=== PATIENT | female | born 1965 | race Caucasian/White ===

== ENCOUNTER 2016-07-05 08:19 | Emergency (ER) | payer OTHER ==
[~2016-07-05] VITALS: Ht 162.6 cm; Wt 74.0 kg
[~2016-07-05 08:19] MED LIST: CYCL-36 PO; PRED20 PO; ULTR50TA PO
[2016-07-05 08:22] VITALS: BP 170/93; PULSE 91; RESP 17; TEMP 97.9; O2SAT 100
[2016-07-05 08:38] VITALS: BP 144/82; PULSE 60; RESP 18; O2SAT 99
[2016-07-05] MEDS ORDERED: SODIUM CHLORIDE 0.9% FLUSH 10 ML FLUSH IVF PRN (08:45)
[2016-07-05] MEDS ORDERED: ASPIRIN 81 MG CHEW TAB CHEW SCH (09:00)
[2016-07-05 09:02] LABS: AUTOMATED NEUTROPHIL # 2.7 TH/MM3 (1.8-7.7); BASOPHIL % 0.8 % (0.0-2.0); EOSINOPHIL # 0.2 TH/MM3 (0-0.4); EOSINOPHIL % 3.9 % (0.0-4.0); HEMATOCRIT 35.8 % (35.0-46.0); HEMO FLAGS DIFF FINAL; LYMPH % 33.7 % (9.0-44.0); LYMPHOCYTE # 1.8 TH/MM3 (1.0-4.8); MEAN CELL VOLUME 83.2 FL (80.0-100.0); MEAN CORPUSCULAR HEMOGLOBIN 28.4 PG (27.0-34.0); MEAN CORPUSCULAR HGB CONC 34.1 % (32.0-36.0); MONO % 9.4 % (0.0-8.0); NEUT % 52.2 % (16.0-70.0); PLATELET COUNT 289 TH/MM3 (150-450); RED CELL DISTRIBUTION WIDTH 15.5 % (11.6-17.2); WHITE BLOOD COUNT 5.3 TH/MM3 (4.0-11.0)
[2016-07-05 09:05] VITALS: BP 144/82; RESP 16; O2SAT 98
[2016-07-05 09:23] LABS: ANION GAP 8 MEQ/L (5-15); AST (GOT) 17 U/L (15-37); BICARBONATE 25.6 MEQ/L (21.0-32.0); BLOOD UREA NITROGEN 12 MG/DL (7-18); CHLORIDE 103 MEQ/L (98-107); GLOMERULAR FILTRATION RATE 67 ML/MIN (>89); MAGNESIUM 2.1 MG/DL (1.5-2.5); POTASSIUM 3.7 MEQ/L (3.5-5.1); SODIUM (NA) 137 MEQ/L (136-145)
[2016-07-05 09:29] LABS: ALKALINE PHOSPHATASE 74 U/L (45-117); ALT (GPT) 24 U/L (10-53); TOTAL BILIRUBIN ADULT 0.3 MG/DL (0.2-1.0)
[2016-07-05 09:42] VITALS: BP_SYST 124; BP_SYST 140; BP_DIAS 71; BP_DIAS 75; PULSE 61; PULSE 64
[2016-07-05 09:48] LABS: APTT (PATIENT) 26.9 SEC (24.3-30.1); PROTHROMBIN TIME - PATIENT 10.7 SEC (9.8-11.6)
--- NOTE | 2016-07-05 10:43 | PD ---
HPI Chief Complaint: Chest Pain Time Seen by Provider: 08:40 Travel History International Travel<30 days: Yes Contact w/Intl Traveler<30days: Yes Name of Country Traveled to: [facility] Traveled to known affect area: No History of Present Illness HPI Is a 50 year-old woman who presents to the emergency department complaining of intermittent tightness and pain in her chest ongoing since yesterday. She's never really had similar symptoms before. She has hyperlipidemia, and some chronic neck and back pain, but has never had heart or lung problems. States symptoms started yesterday. She has some association with suppressed with him. No clear aggravating or alleviating factors. Symptoms not clearly associated with exertion. There are improved with relaxation and rest. They last about 1- 2 minutes when they come on. They continued again today so she came to the emergency department. History Past Medical History Narrative Medical Chronic neck and back pain Hyperlipidemia Prosthetic left eye LMP: EARLY JUNE 2016 Family History Narrative Family History Family history of heart disease. Social History Alcohol Use: Yes (WEEKENDS) Tobacco Use: No Allergies-Medications (Allergen,Severity, Reaction): Coded Allergies: No Known Allergies (Unverified , 07/05/16) Reported Meds & Prescriptions Reported Meds & Active Scripts Active Ultram (Tramadol HCl) 50 Mg Tab 50 Mg PO Q4H PRN Deltasone (Prednisone) 20 Mg Tab 20 Mg PO BID Flexeril (Cyclobenzaprine HCl) 10 Mg Tab 10 Mg PO HS PRN Review of Systems Except as stated in HPI: all other systems reviewed are Neg Physical Exam Narrative GENERAL: Well-appearing 50 year-old woman, no acute distress. SKIN: Focused skin assessment warm/dry. HEAD: Atraumatic. Normocephalic. EYES: Pupils equal and round. No scleral icterus. No injection or drainage. ENT: No nasal bleeding or discharge. Mucous membranes pink and moist. NECK: Trachea midline. No JVD. CARDIOVASCULAR: Regular rate and rhythm. No murmur appreciated. RESPIRATORY: No accessory muscle use. Clear to auscultation. Breath sounds equal bilaterally. GASTROINTESTINAL: Abdomen soft, non-tender, nondistended. Hepatic and splenic margins not palpable. MUSCULOSKELETAL: No obvious deformities. No clubbing. No cyanosis. No edema. NEUROLOGICAL: Awake and alert. No obvious cranial nerve deficits. Motor grossly within normal limits. Normal speech. PSYCHIATRIC: Appropriate mood and affect; insight and judgment normal. Data Data Last Documented VS Vital Signs Date Time Temp Pulse Resp B/P Pulse Ox O2 Delivery O2 Flow Rate FiO2 07/05/16 09:42 64 140/75 07/05/16 09:05 Room Air 07/05/16 09:05 97 07/05/16 09:05 16 07/05/16 08:22 97.9 Orders Electrocardiogram (07/05/16 ) Electrocardiogram (07/05/16 08:42) Complete Blood Count With Diff (07/05/16 08:42) Comprehensive Metabolic Panel (07/05/16 08:42) Magnesium (Mg) (07/05/16 08:42) Prothrombin Time / Inr (Pt) (07/05/16 08:42) Act Partial Throm Time (Ptt) (07/05/16 08:42) Troponin I (07/05/16 08:42) Lipase (07/05/16 08:42) Ecg Monitoring (07/05/16 08:42) Bilateral Bp Monitoring (07/05/16 08:42) Iv Access Insert/Monitor (07/05/16 08:42) Oximetry (07/05/16 08:42) Oxygen Administration (07/05/16 08:42) Sodium Chloride 0.9% Flush (Ns Flush) (07/05/16 08:45) Chest, Pa & Lat (07/05/16 08:42) Aspirin Chew (Aspirin Chew) (07/05/16 09:00) Labs Laboratory Tests Test 07/05/16 07/05/16 08:45 09:22 White Blood Count 5.3 TH/MM3 Red Blood Count 4.30 MIL/MM3 Hemoglobin 12.2 GM/DL Hematocrit 35.8 % Mean Corpuscular Volume 83.2 FL Mean Corpuscular Hemoglobin 28.4 PG Mean Corpuscular Hemoglobin 34.1 % Concent Red Cell Distribution Width 15.5 % Platelet Count 289 TH/MM3 Mean Platelet Volume 8.7 FL Neutrophils (%) (Auto) 52.2 % Lymphocytes (%) (Auto) 33.7 % Monocytes (%) (Auto) 9.4 % Eosinophils (%) (Auto) 3.9 % Basophils (%) (Auto) 0.8 % Neutrophils # (Auto) 2.7 TH/MM3 Lymphocytes # (Auto) 1.8 TH/MM3 Monocytes # (Auto) 0.5 TH/MM3 Eosinophils # (Auto) 0.2 TH/MM3 Basophils # (Auto) 0.0 TH/MM3 CBC Comment DIFF FINAL Differential Comment Sodium Level 137 MEQ/L Potassium Level 3.7 MEQ/L Chloride Level 103 MEQ/L Carbon Dioxide Level 25.6 MEQ/L Anion Gap 8 MEQ/L Blood Urea Nitrogen 12 MG/DL Creatinine 0.89 MG/DL Estimat Glomerular Filtration 67 ML/MIN Rate Random Glucose 111 MG/DL Calcium Level 8.6 MG/DL Magnesium Level 2.1 MG/DL Total Bilirubin 0.3 MG/DL Aspartate Amino Transf 17 U/L (AST/SGOT) Alanine Aminotransferase 24 U/L (ALT/SGPT) Alkaline Phosphatase 74 U/L Troponin I LESS THAN 0.02 NG/ML Total Protein 7.5 GM/DL Albumin 3.4 GM/DL Lipase 179 U/L Prothrombin Time 10.7 SEC Prothromb Time International 1.0 RATIO Ratio Activated Partial 26.9 SEC Thromboplast Time MDM Medical Decision Making Medical Screen Exam Complete: Yes Emergency Medical Condition: Yes Interpretation(s) My review of EKG: Normal sinus rhythm at a rate of 61, and leftward axis, probable LVH, no definite evidence of acute ischemia. LABS: CBC unremarkable. CMP unremarkable. Troponin negative. Lipase normal. Coags unremarkable. My review of chest x-ray: Negative. Differential Diagnosis Anxiety, ACS, PE, dissection, other Narrative Course Medical decision making 50 year-old woman presents emergent from with intermittent chest tightness. History is only slightly suspicious for ACS. No evidence of PE. She has been under more stressors when certainly anxiety could be contributing. She looks otherwise well. EKG is nondiagnostic, without definite evidence of acute ischemia. She has a low heart score (3, 1. age, 1. moderate history, one 0.2 risk factors including hyperlipidemia and family history) putting her risk of major adverse cardiac events in the next 6 weeks that 0.9 1.7%. This was discussed with her and patient would prefer to follow up as an outpatient which I think is reasonable. She agrees to return for any worsening chest pain trouble breathing or any other new or worsening symptoms. Diagnosis Primary Impression: Chest pain Additional Instructions: Take a baby aspirin daily until he follow up with her primary physician. Follow up with her primary doctor in the next 2-3 days. Return to the emergency department for any worsening chest pain, trouble breathing, or any other new or worsening symptoms. Med/Other Pt SpecificInfo: Prescription(s) given Disposition: 01 DISCHARGE HOME Condition: Stable Herbert Avila MD Jul 05, 2016 10:43
--- NOTE | 2016-07-05 10:44 | RADRPT ---
EXAM DATE/TIME: 07/05/2016 09:41 [facility] COMPARISON: No previous studies available for comparison. INDICATIONS : Chest pain. MEDICAL HISTORY : None. SURGICAL HISTORY : Bilateral lumpectomy. ENCOUNTER: Initial ACUITY: 2 days PAIN SCORE: 5/10 LOCATION: Left upper chest FINDINGS: PA and lateral views of the chest demonstrate a normal-sized cardiac silhouette. There is no effusion , consolidation, or pneumothorax. The bones and soft tissues demonstrate no acute abnormality. There are degenerative changes of the thoracic spine. CONCLUSION: No acute cardiopulmonary abnormality is identified. Zackary Arias MD on July 05, 2016 at 10:41 Board Certified Radiologist. This report was verified electronically.
[2016-07-05 11:11] VITALS: BP 132/80; PULSE 60; RESP 16; O2SAT 98
--- NOTE | 2016-07-05 13:24 | EKG ---
Date Performed: 07/05/2016 Time Performed: 08:38:33 PTAGE: 50 years EKG: Sinus rhythm VOLTAGE CRITERIA FOR LVH ABNORMAL ECG NO PREVIOUS TRACING DOCTOR: Vipin Taylor Interpretating Date/Time 07/05/2016 13:21:51
== END 2016-07-05 11:16 | disposition home or self-care (01) ==
LOC: NEPE 08:19
DX: R07.9 Chest pain, unspecified (principal); E78.5 Hyperlipidemia, unspecified; R94.31 Abnormal electrocardiogram [ECG] [EKG]
CPT/HCPCS: 71020; 80053; 83690; 83735; 84484; 85025; 85610; 85730; 93005